=== PATIENT | female | born 1955 | race Caucasian/White ===

== ENCOUNTER 2017-01-14 12:32 | Emergency (ER) | payer OTHER ==
[~2017-01-14] VITALS: Ht 162.6 cm; Wt 79.4 kg
[~2017-01-14 12:32] MED LIST: ALBU2.5V4 IH; ALPR.5T PO; AMIT25TA9 PO; B.AN1CAP PO; BENZ-13 PO; CALC-80 PO; CIPR500T4 PO; CYAN10007 PO; ERGO400C PO; FAMO20TA42 PO; LRT10T PO; LVT.112T PO; NAPR1TAB21 PO; NF-ESOM40C PO; OMEP-10 PO; ONDA8TAB13 PO; PROP1TAB77 PO; SCR1T1 PO; SIMV10TA3 PO; TIZA2CAP PO; VITA150T PO; estrace cream
[2017-01-14] MEDS ORDERED: HYOS0.1281 PO (13:23)
[2017-01-14] MEDS ORDERED: OMEP40CA36 PO (13:23)
--- NOTE | 2017-01-14 13:57 | ED General ---
General Chief Complaint: Lower Extremity Stated Complaint: L LEG PAIN Nursing Triage Note: PT CO OF L CALF PAIN STARTED YESTERDAY, STATES TENDER FROM CALF TO UP BEHIND KNEE Nursing Sepsis Screen: No Definite Risk Source of Information: Patient Exam Limitations: No Limitations History of Present Illness Time Seen by Provider: 13:05 Initial Comments 61-year-old female patient presents to the emergency department for complaints of left calf pain beginning yesterday morning. Does report claudication. Denies any known injury. Patient does have a h/o breast cancer. Patient states she has had SOB for the last several months, but worse yesterday. States when her TSH is low, the SOB is worse. Her doctor has been trying to adjust her levothyroxine for several months. Timing/Duration: 1-2 Days Modifying Factors: worse with Movement, worse with Other (worse with ambulation.) Allergies and Home Medications Allergies Coded Allergies: acetaminophen (Verified Allergy, Unknown, rash, 07/23/16) Home Medications Albuterol Sulfate 2.5 Mg/3 Ml Vial.neb, 2.5 MG IH Q4H PRN for SHORTNESS OF BREATH, #28 Ref 0 Prescribed by: JADIEL PIERCE on 07/23/161945 Alprazolam 0.5 Mg Tablet, 1 TAB PO TID PRN, (Reported) Amitriptyline Hcl 25 Mg Tablet, 1 EACH PO HS, (Reported) Calcium Carbonate/Vitamin D3 1 Each Tablet, 1 EACH PO BID, (Reported) Cholecalciferol 400 Unit Capsule, 400 UNIT PO DAILY, (Reported) Hyoscyamine Sulfate 0.125 Mg Tablet, 0.125 MG PO ACHS, (Reported) Levothyroxine Sodium 112 Mcg Tablet, 1 EACH PO DAILY, (Reported) Loratadine 10 Mg Tab, 10 MG PO DAILY, (Reported) Omeprazole 40 Mg Capsule.dr, 40 MG PO DAILY, (Reported) Simvastatin 10 Mg Tablet, 10 MG PO DAILY, (Reported) Vitamin B Complex & Vit C No.4 150 Mg Tablet, 150 MG PO DAILY, (Reported) [estrace cream] , (Reported) Constitutional: No dizziness, No fever, No malaise, No weakness EENTM: no symptoms reported Respiratory: No cough, No hemoptysis, No orthopnea, No phlegm, short of breath ((on going for several months. worse when TSH is low)) Cardiovascular: No chest pain, No edema Gastrointestinal: No abdominal pain, No constipation, No diarrhea, No nausea, No vomiting Genitourinary: no symptoms reported Musculoskeletal: see HPI, muscle pain (left calf pain) Skin: no symptoms reported Psychiatric/Neurological: No Symptoms Reported All Other Systems Reviewed Negative Unless Noted: Yes (Negative excepted noted.) Past Eiicdzi-Anddwg-Ohlumd Hx Patient Social History Alcohol Use: Denies Use Recreational Drug Use: No Smoking Status: Never a Smoker Recent Foreign Travel: No Contact w/Someone Who Travel: No Recent Infectious Disease Expo: No Recent Hopitalizations: No Immunizations Up To Date Date of Pneumonia Vaccine: Jun 06, 2016 Date of Influenza Vaccine: May 06, 2016 Seasonal Allergies Seasonal Allergies: Yes Surgeries HX Surgeries: Yes (BILAT MASTECTOMY, OVARIAN CYST, BLADDER) Surgeries: Gallbladder, Hysterectomy, Thyroidectomy Respiratory Hx Respiratory Disorders: No Cardiovascular Hx Cardiac Disorders: No Neurological Hx Neurological Disorders: No Reproductive System Sexually 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 Genitourinary Hx Genitourinary Disorders: No Gastrointestinal Hx Gastrointestinal Disorders: Yes Gastrointestinal Disorders: Gastroesophageal Reflux Musculoskeletal Hx Musculoskeletal Disorders: No Endocrine Hx Endocrine Disorders: Yes Endocrine Disorders: Hypothyroidsim HEENT HX ENT Disorders: No Cancer Hx Cancer: Yes Cancer: Breast Psychosocial Hx Psychiatric Problems: Yes Behavioral Health Disorders: Anxiety Blood Transfusions Hx Blood Disorders: No Reviewed Nursing Assessment Reviewed/Agree w Nursing PMH: Yes Family Medical History Significant Family History: No Pertinent Family Hx Physical Exam Vital Signs Vital Sign - Last 12Hours 01/14/17 13:00 Temp 98.0 Pulse 108 Resp 20 B/P (MAP) 141/91 Pulse Ox 97 Capillary Refill : Less Than 3 Seconds General Appearance: No Apparent Distress, WD/WN HEENT: PERRL/EOMI, Pharynx Normal Neck: Normal Inspection, Supple Respiratory: Lungs Clear, Normal Breath Sounds, No Respiratory Distress Cardiovascular: Regular Rate, Rhythm, No Edema, No Murmur, Normal Peripheral Pulses Gastrointestinal: Non Tender, Soft, No Distended Back: Normal Inspection Extremity: Normal Capillary Refill, Normal Range of Motion, No Pedal Edema, Calf Tenderness (left calf tenderness.), Other (slight swelling of the left calf ) Neurologic/Psychiatric: Alert, Oriented x3, No Motor/Sensory Deficits, Normal Mood/Affect Skin: Normal Color, Warm/Dry Progress/Results/Core Measures Results/Orders Lab Results Laboratory Tests Test 01/14/17 14:27 Range/Units White Blood Count 13.5 H 4.3-11.0 10^3/uL Red Blood Count 4.76 4.35-5.85 10^6/uL Hemoglobin 14.3 11.5-16.0 G/DL Hematocrit 44 35-52 % Mean Corpuscular Volume 92 80-99 FL Mean Corpuscular Hemoglobin 30 25-34 PG Mean Corpuscular Hemoglobin Concent 33 32-36 G/DL Red Cell Distribution Width 13.6 10.0-14.5 % Platelet Count 217 130-400 10^3/uL Mean Platelet Volume 10.9 H 7.4-10.4 FL Neutrophils (%) (Auto) 79 H 42-75 % Lymphocytes (%) (Auto) 13 12-44 % Monocytes (%) (Auto) 8 0-12 % Eosinophils (%) (Auto) 0 0-10 % Basophils (%) (Auto) 0 0-10 % Neutrophils # (Auto) 10.7 H 1.8-7.8 X 10^3 Lymphocytes # (Auto) 1.7 1.0-4.0 X 10^3 Monocytes # (Auto) 1.1 H 0.0-1.0 X 10^3 Eosinophils # (Auto) 0.0 0.0-0.3 10^3/uL Basophils # (Auto) 0.0 0.0-0.1 10^3/uL Prothrombin Time 11.9 L 12.2-14.7 SEC INR Comment 0.9 0.8-1.4 Activated Partial Thromboplast Time 28 24-35 SEC D-Dimer 0.27 0.00-0.49 UG/ML Sodium Level 142 135-145 MMOL/L Potassium Level 3.6 3.6-5.0 MMOL/L Chloride Level 106 98-107 MMOL/L Carbon Dioxide Level 24 21-32 MMOL/L Anion Gap 12 5-14 MMOL/L Blood Urea Nitrogen 14 7-18 MG/DL Creatinine 0.84 0.60-1.30 MG/DL Estimat Glomerular Filtration Rate > 60 BUN/Creatinine Ratio 17 Glucose Level 111 H 70-105 MG/DL Calcium Level 9.3 8.5-10.1 MG/DL Total Bilirubin 0.4 0.1-1.0 MG/DL Aspartate Amino Transf (AST/SGOT) 19 5-34 U/L Alanine Aminotransferase (ALT/SGPT) 25 0-55 U/L Alkaline Phosphatase 83 40-136 U/L Troponin I < 0.30 <0.30 NG/ML Total Protein 7.3 6.4-8.2 G/DL Albumin 4.2 3.2-4.5 G/DL TSH [place] Testing 0.69 0.35-4.94 UIU/ML My Orders Orders - JADIEL PIERCE Us Venous Lower Ext Lt (01/14/17 13:01) Cbc With Automated Diff (01/14/17 13:34) Comprehensive Metabolic Panel (01/14/17 13:34) Fibrin Degradation Products (01/14/17 13:34) Protime With Inr (01/14/17 13:34) Partial Thromboplastin Time (01/14/17 13:34) Thyroid Analyzer (01/14/17 13:34) Saline Lock/Iv-Start (01/14/17 13:34) Ekg Tracing (01/14/17 13:36) Troponin I (01/14/17 13:36) Vital Signs/I&O Vital Sign - Last 12Hours 01/14/17 01/14/17 13:00 16:07 Temp 98.0 98.0 Pulse 108 89 Resp 20 16 B/P (MAP) 141/91 Pulse Ox 97 97 Blood Pressure Mean: 108 Diagnostic Imaging Diagonstic Imaging: Ultrasound Plain Films/CT/US/NM/MRI: leg Comments FINDINGS: The left common femoral, superficial femoral and popliteal veins demonstrate normal response to compression, augmentation, and Valsalva. There are no abnormal left lower extremity fluid collections or masses. IMPRESSION: No evidence of deep venous thrombosis in the left lower extremity. Dictated by: Dictated on workstation # [id number] Reviewed: Reviewed by Me (radiology report reviewed by me. ) Departure Communication Progress Notes Laboratory and diagnostic findings discussed with the patient. Patient reports having better at this time. Plan for discharge to home with follow-up as an outpatient with Dr. Pitt and her informatics developer. Patient to call for appointment time tomorrow morning. Impression Impression: Primary Impression: Pain of left calf Additional Impression: Hypothyroidism (acquired) Disposition: HOME, SELF-CARE Condition: Improved Departure-Patient Inst. Decision time for Depature: 15:52 Referrals: VERONICA PITT MD (PCP/Family) Primary Care Physician Patient Instructions: Thyroid Stimulating Hormone Test Add. Discharge Instructions: All discharge instructions reviewed with patient and/or family. Voiced understanding. Continue usual home medications. Elevate the left calf on pillows. Ice pack for Tri-Met intervals as needed for pain. Follow-up with Dr. Pitt as an outpatient for recheck. Return to the emergency department for worsened symptoms or any other concerns. JADIEL PIERCE Jan 14, 2017 13:57
--- NOTE | 2017-01-14 14:28 | Diagnostic Imaging Report ---
PROCEDURE: US left lower extremity venous. TECHNIQUE: Multiple real-time grayscale images were obtained over the left lower extremity in various projections. Additional duplex Doppler and color Doppler images were also obtained. INDICATION: Left leg pain. FINDINGS: The left common femoral, superficial femoral and popliteal veins demonstrate normal response to compression, augmentation, and Valsalva. There are no abnormal left lower extremity fluid collections or masses. IMPRESSION: No evidence of deep venous thrombosis in the left lower extremity. Dictated by: Dictated on workstation # [id number]
[2017-01-14 14:36] LABS: BASOPHILS % (AUTO) 0 % (0-10); EOSINOPHILS % (AUTO) 0 % (0-10); LYMPHOCYTES # (AUTO) 1.7 X 10^3 (1.0-4.0); LYMPHOCYTES % (AUTO) 13 % (12-44); MEAN CORPUSCULAR HEMOGLOBIN 30 PG (25-34); MEAN CORPUSCULAR HGB CONC 33 G/DL (32-36); MEAN CORPUSCULAR VOLUME 92 FL (80-99); MEAN PLATELET VOLUME 10.9 FL (7.4-10.4); MONOCYTES # (AUTO) 1.1 X 10^3 (0.0-1.0); MONOCYTES % (AUTO) 8 % (0-12); NEUTROPHILS # (AUTO) 10.7 X 10^3 (1.8-7.8); NEUTROPHILS % (AUTO) 79 % (42-75); PLATELET COUNT 217 10^3/uL (130-400); RED BLOOD COUNT 4.76 10^6/uL (4.35-5.85); RED CELL DISTRIBUTION WIDTH 13.6 % (10.0-14.5); WHITE BLOOD COUNT 13.5 10^3/uL (4.3-11.0)
[2017-01-14 14:44] LABS: INR 0.9 (0.8-1.4); PROTHROMBIN TIME PATIENT 11.9 SEC (12.2-14.7)
[2017-01-14 14:55] LABS: ALANINE AMINOTRANSFERASE 25 U/L (0-55); ALBUMIN 4.2 G/DL (3.2-4.5); ANION GAP 12 MMOL/L (5-14); ASPARTATE AMINO TRANSFERASE 19 U/L (5-34); BILIRUBIN,TOTAL 0.4 MG/DL (0.1-1.0); BLOOD UREA NITROGEN 14 MG/DL (7-18); BUN/CREATININE RATIO 17; CALCIUM 9.3 MG/DL (8.5-10.1); CARBON DIOXIDE 24 MMOL/L (21-32); CHLORIDE 106 MMOL/L (98-107); CREATININE SERUM 0.84 MG/DL (0.60-1.30); GFR ESTIMATED > 60; GLUCOSE 111 MG/DL (70-105); POTASSIUM 3.6 MMOL/L (3.6-5.0); SODIUM 142 MMOL/L (135-145); TOTAL PROTEIN 7.3 G/DL (6.4-8.2)
[2017-01-14 15:15] LABS: TROPONIN I < 0.30 NG/ML (<0.30)
[2017-01-14 16:07] VITALS: BP 122/68
== END 2017-01-14 16:06 | disposition home or self-care (01) ==
LOC: EDUNIT# 12:32 → ER 12:33
DX: M79.662 Pain in left lower leg (principal); E03.9 Hypothyroidism, unspecified; Z85.3 Personal history of malignant neoplasm of breast
CPT/HCPCS: 36415; 80053; 84443; 84484; 85025; 85379; 85610; 85730; 93005

== ENCOUNTER → 2017-05-15 | Outpatient (CLI) | payer OTHER ==
[~2017-05-15] MED LIST changes: +HYOS0.1281 PO; +OMEP40CA36 PO
--- NOTE | 2017-05-15 10:43 | Diagnostic Imaging Report ---
INDICATION: Shoulder pain. EXAMINATION: Three views were obtained. FINDINGS: There is mild arthrosis of the acromioclavicular joint. The alignment of the shoulder is normal. There is no fracture or dislocation. The right lung is clear. The soft tissues are unremarkable. IMPRESSION: Arthrosis of the acromioclavicular joint, otherwise unremarkable. Dictated by: Dictated on workstation # [id number]
== END ==
LOC: RAD 10:08
PROVIDERS: ATTEND Nurse Practitioner Family
DX: M19.011 Primary osteoarthritis, right shoulder (principal)
CPT/HCPCS: 73030

== ENCOUNTER 2018-12-07 23:14 | Emergency (ER) | payer OTHER ==
[~2018-12-07 23:14] MED LIST changes: -BENZ-13 PO; +BENZ100C18 PO
== END 2018-12-07 23:40 | disposition left against medical advice (07) ==
LOC: EDUNIT# 23:14 → ER 23:16
DX: R04.0 Epistaxis (principal)

== ENCOUNTER → 2019-04-22 | Outpatient (CLI) | payer MEDICARE, OTHER ==
--- NOTE | 2019-04-22 17:16 | Diagnostic Imaging Report ---
INDICATION: Postmenopausal female. COMPARISON: 07/27/2016. FINDINGS: AP Spine L1-L4: [BMD (g/cm2): 0.942] [T-Score: -2.1] [Z-Score: -1.0] [BMD Previous: 1.143] [BMD % Change: -17.6] LT Hip Neck: [BMD (g/cm2): 0.649] [T-Score: -2.8] [Z-Score: -1.6] LT Hip Total: [BMD (g/cm2):0.735] [T-Score:-2.2] [Z-Score: -1.2] [BMD Previous: 0.743] [BMD % Change: -1.1] RT Hip Neck: [BMD (g/cm2):0.606] [T-Score:-3.1] [Z-Score:-1.9] RT Hip Total: [BMD (g/cm2):0.739] [T-score:-2.1] [Z-Score:-1.2] [BMD Previous:0.726] [BMD % Change:1.8] *Indicates significant change from prior examination based on 95% confidence level. World Health Organization criteria for BMD interpretation classify patients as Normal (T-score at or above -1.0), Osteopenic (T-score between -1.0 and -2.5) or Osteoporotic (T-score at or below -2.5). LIMITATIONS AND MODIFICATION: None. FRACTURE RISK (FRAX SCORE): Not applicable. IMPRESSION: 1. Osteoporosis. 2. Bone Mineral density has decreased, as detailed above. 3. See below National Osteoporosis Foundation guidelines on when to potentially initiate pharmacologic therapy. Based on the National Osteoporosis Foundation Guidelines, pharmacologic treatment should be initiated in any of the following, unless clinical conditions suggest otherwise: * Any patient with prior fragility fracture of the hip or vertebrae. A spine fracture indicates 5X risk for subsequent spine fracture and 2X risk for subsequent hip fracture. * Osteoporosis (T-score <-2.5). * Postmenopausal women and men age 50 and older with low bone mass/osteopenia (T-score between -1.0 and -2.5) by DXA and 10-year major osteoporotic fracture greater than 20% or a 10-year probability of hip fracture greater than 3%. These fracture risks are supplied above in the FRAX score, if applicable. * Clinician judgement and/or patient preferences may indicate treatment for people with 10-year fracture probabilities above or below these levels. Dictated by: Dictated on workstation # [id number]
--- NOTE | 2019-04-22 17:23 | Diagnostic Imaging Report ---
INDICATION: Left hip pain. FINDINGS: Two views of the left hip demonstrate small osteophytes off of the lateral acetabulum. No fracture or dislocation is present. The joint space is of normal width. IMPRESSION: There are mild degenerative changes of the left hip. Dictated by: Dictated on workstation # [id number]
== END ==
LOC: RAD 14:46
PROVIDERS: ATTEND Family Medicine
DX: M81.0 Age-related osteoporosis without current pathological fracture (principal); M16.12 Unilateral primary osteoarthritis, left hip; Z78.0 Asymptomatic menopausal state
CPT/HCPCS: 73502; 77080

== ENCOUNTER → 2019-05-27 | Outpatient (CLI) | payer MEDICARE, OTHER ==
[~2019-05-27] MED LIST changes: +DENOSUMAB 60 MG/1 ML (PROLIA) SQ NR
[2019-05-27 10:42] VITALS: BP 128/87
== END ==
LOC: SDC 10:33
PROVIDERS: ATTEND Family Medicine
DX: M81.0 Age-related osteoporosis without current pathological fracture (principal)
CPT/HCPCS: 96372

== ENCOUNTER → 2019-11-13 | Outpatient (CLI) | payer MEDICARE, OTHER ==
[~2019-11-13] MED LIST changes: -DENOSUMAB 60 MG/1 ML (PROLIA) SQ NR; +OMEP40CA27 PO; -OMEP40CA36 PO
--- NOTE | 2019-11-13 11:52 | Diagnostic Imaging Report ---
Indication: Chronic cough PA and lateral chest Heart size and pulmonary vascularity are normal. Lungs are clear. There are no effusions or pneumothoraces. Postoperative changes from right mastectomy. IMPRESSION: No acute abnormalities in the chest Dictated by: Dictated on workstation # [id number]
== END ==
LOC: RAD 11:28
PROVIDERS: ATTEND Nurse Practitioner Family
DX: R05 Cough (principal)
CPT/HCPCS: 71046

== ENCOUNTER 2019-11-26 09:50 | Outpatient (CLI) | payer MEDICARE, OTHER ==
[2019-11-26] MEDS ORDERED: DENOSUMAB 60 MG/1 ML (PROLIA) SQ SCH (10:15)
[2019-11-26 10:22] VITALS: BP 142/87
== END 2019-11-26 10:22 | disposition home or self-care (01) ==
LOC: SDC 09:50
PROVIDERS: ATTEND Family Medicine
DX: M81.0 Age-related osteoporosis without current pathological fracture (principal)
CPT/HCPCS: 96372

== ENCOUNTER → 2019-12-15 | Outpatient (CLI) | payer MEDICARE, OTHER | LOC: CARD 11:13 | PROVIDERS: ATTEND Internal Medicine Cardiovascular Disease | DX: R07.89 Other chest pain (principal); I10 Essential (primary) hypertension; R00.2 Palpitations; R06.02 Shortness of breath | CPT/HCPCS: 93306 ==

== ENCOUNTER → 2019-12-23 | Outpatient (CLI) | payer MEDICARE, OTHER ==
[~2019-12-23] VITALS: Ht 164 cm; Wt 81.0 kg
[~2019-12-23] MED LIST changes: +CATHETER FLUSH 10 ML SYR IV PRN; +REGADENOSON 0.4 MG/5 ML SYR (LEXISCAN) IV ONE
--- NOTE | 2019-12-23 17:05 | STRESS TEST ---
DATE OF SERVICE: 12/23/2019 RESTING AND POST REGADENOSON TECHNETIUM-99M TETROFOSMIN SPECT CT IMAGING Baseline images were carried out after injection of 10.11 mCi of technetium-99m Tetrofosmin. This was followed by 0.4 mg regadenoson and 32.7 mCi of technetium-99m Tetrofosmin. The electrocardiogram showed sinus rhythm at baseline. It did not change significantly with regadenoson infusion. The patient tolerated the procedure well. Review of images at rest and following stress does not indicate any significant perfusion defects consistent with myocardial ischemia or infarction. Gated images showed normal global left ventricular systolic function with normal regional wall motion. Left ventricular ejection fraction is calculated to be 79%. Left ventricular end diastolic volume is 26 mL. TID is absent (0.9). CONCLUSIONS: 1. No evidence of any significant myocardial ischemia or infarction on this study. 2. Normal regional wall motion. 3. Normal global left ventricular systolic function with a calculated ejection fraction of 79%. Job ID: [id number] DocumentID: [id number] Dictated Date: 12/23/2019 16:58:53 Transfusion Aide Date: 12/23/2019 17:05:03 Dictated By: ERNESTINA JESSICA MD, MA, FACP, FACC,
== END ==
LOC: CARD 07:21
PROVIDERS: ATTEND Internal Medicine Cardiovascular Disease
DX: R07.89 Other chest pain (principal); I10 Essential (primary) hypertension; R00.2 Palpitations; R06.02 Shortness of breath
CPT/HCPCS: 78452; 93017

== ENCOUNTER → 2021-05-10 | Outpatient (CLI) | payer MEDICARE, OTHER ==
[~2021-05-10] MED LIST changes: -CATHETER FLUSH 10 ML SYR IV PRN; -CIPR500T4 PO; +CIPR500T5 PO; -OMEP40CA27 PO; +OMEP40CA6 PO; -REGADENOSON 0.4 MG/5 ML SYR (LEXISCAN) IV ONE
--- NOTE | 2021-05-10 14:45 | Diagnostic Imaging Report ---
INDICATION: Postmenopausal state COMPARISON: 04/22/2019 FINDINGS: AP Spine L1-L4: [BMD (g/cm2): 0.970] [T-Score: -1.9] [Z-Score: -0.9] [BMD Previous: 0.942] [BMD % Change: 3.0] LT Hip Neck: [BMD (g/cm2): 0.567] [T-Score: -3.4] [Z-Score: -2.2] LT Hip Total: [BMD (g/cm2):0.676] [T-Score:-2.6] [Z-Score: -1.7] [BMD Previous: 0.735] [BMD % Change: -8.0] RT Hip Neck: [BMD (g/cm2):0.557] [T-Score:-3.5] [Z-Score:-2.3] RT Hip Total: [BMD (g/cm2):0.672] [T-score:-2.7] [Z-Score:-1.8] [BMD Previous:0.739] [BMD % Change:-9.1] *Indicates significant change from prior examination based on 95% confidence level. World Health Organization criteria for BMD interpretation classify patients as Normal (T-score at or above -1.0), Osteopenic (T-score between -1.0 and -2.5) or Osteoporotic (T-score at or below -2.5). LIMITATIONS AND MODIFICATION: None. FRACTURE RISK (FRAX SCORE): The ten year probability of (%): Major Osteoporotic Fracture: [21.1] Hip Fracture: [8.0] IMPRESSION: 1. Osteoporosis. 2. No significant change in bone mineral density since prior examination. 3. See below National Osteoporosis Foundation guidelines on when to potentially initiate pharmacologic therapy. Based on the National Osteoporosis Foundation Guidelines, pharmacologic treatment should be initiated in any of the following, unless clinical conditions suggest otherwise: * Any patient with prior fragility fracture of the hip or vertebrae. A spine fracture indicates 5X risk for subsequent spine fracture and 2X risk for subsequent hip fracture. * Osteoporosis (T-score <-2.5). * Postmenopausal women and men age 50 and older with low bone mass/osteopenia (T-score between -1.0 and -2.5) by DXA and 10-year major osteoporotic fracture greater than 20% or a 10-year probability of hip fracture greater than 3%. These fracture risks are supplied above in the FRAX score, if applicable. * Clinician judgement and/or patient preferences may indicate treatment for people with 10-year fracture probabilities above or below these levels. Dictated by: Dictated on workstation # [id number]
== END ==
LOC: RAD 12:30
PROVIDERS: ATTEND Nurse Practitioner Family
DX: M81.0 Age-related osteoporosis without current pathological fracture (principal); Z78.0 Asymptomatic menopausal state
CPT/HCPCS: 77080

== ENCOUNTER 2021-05-31 12:07 | Outpatient (CLI) | payer MEDICARE, OTHER ==
[2021-05-31 13:12] VITALS: BP 120/89
[2021-05-31] MEDS ORDERED: DENOSUMAB 60 MG/1 ML (PROLIA) SQ ONE (13:15)
== END 2021-05-31 13:12 | disposition home or self-care (01) ==
LOC: SDC 12:07
PROVIDERS: ATTEND Family Medicine
DX: M81.0 Age-related osteoporosis without current pathological fracture (principal)
CPT/HCPCS: 96372

== ENCOUNTER → 2021-11-29 | Outpatient (CLI) | payer MEDICARE, OTHER ==
[~2021-11-29] MED LIST changes: +DENOSUMAB 60 MG/1 ML (PROLIA) SQ ONE
[2021-11-29 12:20] VITALS: BP 134/76
== END ==
LOC: SDC 12:07
PROVIDERS: ATTEND Family Medicine
DX: M81.0 Age-related osteoporosis without current pathological fracture (principal)
CPT/HCPCS: 96372

== ENCOUNTER → 2022-05-30 | Outpatient (CLI) | payer MEDICARE, OTHER ==
[~2022-05-30] MED LIST changes: -DENOSUMAB 60 MG/1 ML (PROLIA) SQ ONE; +DENOSUMAB 60 MG/1 ML (PROLIA) SQ SCH
[2022-05-30 10:15] VITALS: BP 127/82
== END ==
LOC: SDC 10:01
PROVIDERS: ATTEND Family Medicine
DX: M81.0 Age-related osteoporosis without current pathological fracture (principal)
CPT/HCPCS: 96372

== ENCOUNTER → 2022-11-30 | Outpatient (CLI) | payer MEDICARE, OTHER ==
[~2022-11-30] VITALS: Ht 162.6 cm; Wt 81.0 kg
[2022-11-30 12:30] VITALS: BP 134/76
== END ==
LOC: SDC 11:58
PROVIDERS: ATTEND Family Medicine
DX: M81.0 Age-related osteoporosis without current pathological fracture (principal)
CPT/HCPCS: 96372

== ENCOUNTER 2023-06-19 13:51 | Outpatient (CLI) | payer MEDICARE, OTHER ==
[~2023-06-19] VITALS: Ht 162.6 cm; Wt 81.0 kg
[~2023-06-19 13:51] MED LIST changes: -DENOSUMAB 60 MG/1 ML (PROLIA) SQ SCH
[2023-06-19] MEDS ORDERED: DENOSUMAB 60 MG/1 ML (PROLIA) SQ SCH (14:15)
[2023-06-19 14:25] VITALS: BP 118/78
== END 2023-06-19 14:25 | disposition home or self-care (01) ==
LOC: SDC 13:51
PROVIDERS: ATTEND Family Medicine
DX: M81.0 Age-related osteoporosis without current pathological fracture (principal)
CPT/HCPCS: 96372